=== PATIENT | female | born 1970 ===

== ENCOUNTER 2016-09-22 15:21 | Emergency (ER) | payer BC ==
--- NOTE | 2016-09-22 16:15 | UC ---
General HPI - HPI Summary HPI Summary: TICK REMOVED FROM RIGHT FOREARM TODAY [employer]. WAS IN [place] YESTERDAY, MAY HAVE PICKED UP TICK THEN. NO FEVER, NO RASH, NO MUSCLE ACHES, NO JOINT PAIN. - History of Current Complaint Chief Complaint: UCSkin Stated Complaint: TICK Time Seen by Provider: 09/22/16 15:29 Hx Obtained From: Patient Onset/Duration: Gradual Onset, Lasting Days, Resolved Onset Severity: Mild Current Severity: None Pain Intensity: 0 Associated Signs & Symptoms: Negative: Abdominal Pain, Back Pain, Cough, Dizziness, Diarrhea, Fever, Trauma, Weakness - Allergy/Home Medications Allergies/Adverse Reactions: Allergies Allergy/AdvReac Type Severity Reaction Status Date / Time Amoxicillin Allergy Rash Verified 09/22/16 15:41 Home Medications: Home Medications ALPRAZolam TAB* [Xanax TAB*] 0.25 mg PO TID PRN 09/22/16 [History Confirmed ] PMH/Surg Hx/FS Hx/Imm Hx Previously Healthy: Yes Endocrine History Of: Denies: Diabetes Cardiovascular History Of: Denies: Cardiac Disorders, Hypertension Respiratory History Of: Denies: COPD - Surgical History Surgical History: None - Family History Known Family History: Negative: Respiratory Disease, Blood Disorder - Social History Occupation: Employed Full-time Lives: With Family Alcohol Use: Rare Substance Use Type: None Smoking Status (MU): Never Smoked Tobacco Review of Systems Constitutional: Negative Skin: Rash - RIGHT FOREARM Eyes: Negative ENT: Negative Respiratory: Negative Cardiovascular: Negative Gastrointestinal: Negative Genitourinary: Negative Motor: Negative Neurovascular: Negative Musculoskeletal: Negative Neurological: Negative Psychological: Negative All Other Systems Reviewed And Are Negative: Yes Physical Exam Triage Information Reviewed: Yes Appearance: Well-Appearing, No Pain Distress, Well-Nourished Vital Signs: Initial Vital Signs Temp 97.3 F 09/22/16 15:38 Pulse 80 09/22/16 15:38 Resp 16 09/22/16 15:38 BP 130/75 09/22/16 15:38 Pulse Ox 100 09/22/16 15:38 Vital Signs Reviewed: Yes Eye Exam: Normal ENT Exam: Normal ENT: Positive: Normal ENT inspection, Hearing grossly normal, TMs normal Dental Exam: Normal Neck exam: Normal Neck: Positive: Supple, Nontender, No Lymphadenopathy Respiratory Exam: Normal Respiratory: Positive: Chest non-tender, Lungs clear, Normal breath sounds, No respiratory distress Cardiovascular Exam: Normal Cardiovascular: Positive: RRR, No Murmur, Pulses Normal Abdominal Exam: Normal Musculoskeletal Exam: Normal Neurological Exam: Normal Psychological Exam: Normal Skin: Positive: rashes - FAINT ERYTHEMATOUS 0.5 CM X 0.5 CM AREA RIGHT FOREARM Course/Dx - Differential Dx - Multi-Symptom Differential Diagnoses: Metabolic Abnormality Provider Diagnoses: TICK BITE PROPHYLAXIS Discharge - Discharge Plan Condition: Stable Disposition: HOME Prescriptions: DOXYcycline CAP(*) [DOXYcycline 100MG CAP(*)] 200 mg PO ONCE #2 cap Patient Education Materials: Tick Bite (ED) Referrals: Luis Fernando Javier MD [Primary Care Provider] - Images Front/Back of Body, Lg ([place]): 1 - FAINT ERYTHEMATOUS 0.5 CM X 0.5 CM AREA RIGHT FOREARM
== END 2016-09-22 15:55 | disposition home or self-care (01) ==
LOC: UCEAST 15:21
DX: S50.861A Insect bite (nonvenomous) of right forearm, initial encounter (principal); W57.XXXA Bitten or stung by nonvenomous insect and other nonvenomous arthropods, initial encounter; Y93.9 Activity, unspecified; Y92.821 Forest as the place of occurrence of the external cause; Z88.1 Allergy status to other antibiotic agents
CPT/HCPCS: 99202; G0463